=== PATIENT | female | born 1950 | race Hispanic/Latino ===

== ENCOUNTER 2018-05-11 09:39 | Day surgery (SDC) | payer MEDICARE, BC ==
[2018-05-11] MEDS ORDERED: Propofol 10 mg/ml Inj (20 ML) ONE (11:05)
[2018-05-11] MEDS ORDERED: Midazolam 2 MG/2 ML VIAL ONE (11:05)
[2018-05-11] MEDS ORDERED: Sodium Chloride 0.9% 1,000 ML IV SCH (12:30)
[2018-05-11 13:06] VITALS: BP 134/81; PULSE 72; RESP 18; TEMP 97.8; O2SAT 98
== END 2018-05-11 13:35 | disposition home or self-care (01) ==
LOC: ENDO 09:39
PROVIDERS: ATTEND Internal Medicine Gastroenterology
DX: K22.5 Diverticulum of esophagus, acquired (principal); K44.9 Diaphragmatic hernia without obstruction or gangrene; K22.2 Esophageal obstruction; K29.50 Unspecified chronic gastritis without bleeding; I25.10 Atherosclerotic heart disease of native coronary artery without angina pectoris; J44.9 Chronic obstructive pulmonary disease, unspecified
CPT/HCPCS: 43239; 88305; 88342; J2001; J2250; J2704; J7030; J7040

== ENCOUNTER → 2018-07-27 | Day surgery (SDC) | payer MEDICARE, BC ==
[~2018-07-27] MED LIST: Propofol 10 mg/ml Inj (20 ML) ONE; Sodium Chloride 0.9% 1,000 ML IV SCH
[2018-07-27 10:04] VITALS: TEMP 98.4
[2018-07-27 13:06] VITALS: BP 176/66
[2018-07-27 13:18] VITALS: PULSE 73; RESP 13; O2SAT 96
== END | disposition home or self-care (01) ==
LOC: ENDO 09:32
PROVIDERS: ATTEND Internal Medicine Gastroenterology
DX: Z12.11 Encounter for screening for malignant neoplasm of colon (principal); K57.30 Diverticulosis of large intestine without perforation or abscess without bleeding; K64.1 Second degree hemorrhoids